=== PATIENT | male | born 1975 | race Two or more races ===

== ENCOUNTER 2018-09-09 08:07 | Day surgery (SDC) | payer OTHER | END 2018-09-09 16:35 | disposition home or self-care (01) | LOC: CIR.AMB 08:07 | DX: D01.3 Carcinoma in situ of anus and anal canal (principal); K64.8 Other hemorrhoids; A63.0 Anogenital (venereal) warts ==

== ENCOUNTER 2022-10-18 12:18 | Emergency (ER) | payer OTHER ==
[~2022-10-18] VITALS: Ht 180.3 cm; Wt 77.1 kg
== END 2022-10-18 15:51 | disposition home or self-care (01) ==
LOC: ER 12:18
DX: M76.62 Achilles tendinitis, left leg (principal)